=== PATIENT | male | born 1985 | race Hispanic/Latino ===

== ENCOUNTER → 2022-12-24 18:32 | Outpatient (CLI) | payer OTHER, MEDICAID, SELFPAY | PROVIDERS: Visit Provider Registered Nurse | DX: N39.0 Urinary tract infection, site not specified (principal) | CPT/HCPCS: 81002; 87086 ==

== ENCOUNTER → 2022-12-25 10:07 | Outpatient (CLI) | payer OTHER, MEDICAID, SELFPAY ==
[2022-12-25 11:58] LABS: Urine Chlamydia NOT DETECTED
[2022-12-25 12:01] LABS: Urine N gonorrhoeae DETECTED
== END ==
PROVIDERS: Visit Provider Registered Nurse
DX: Z11.3 Encounter for screening for infections with a predominantly sexual mode of transmission (principal)
CPT/HCPCS: 87491; 87591